=== PATIENT | female | born 1955 | race Caucasian/White ===

== ENCOUNTER → 2017-09-01 | Outpatient (CLI) | payer OTHER ==
[~2017-09-01] MED LIST: LOSARTAN POTASS25 MG PO; TAGAMET HB200 MG PO
--- NOTE | 2017-09-02 08:28 | Diagnostic Imaging Report ---
TECHNIQUE: Magnetic resonance imaging of the LEFT ANKLE was performed WITHOUT injected contrast. COMPARISON: None available. HISTORY: Pain, evaluate peroneal tendons. FINDINGS: Hindfoot varus. LIGAMENTS: Medial Complex: Deltoid intact. Lateral Complex: Tibiofibular ligaments intact. Attenuation of the anterior talofibular ligament and calcaneofibular ligament. TENDONS: Medial: Posterior tibial and flexor tendons intact. Lateral: Peroneal tendons intact. Anterior: Anterior tibial and extensor tendons intact. Achilles: Mild Achilles tendinosis. BONES: No focal or infiltrative bone marrow replacing abnormality. No acute fracture or osteonecrosis. JOINTS: Cartilage: No focal defect is identified involving the tibiotalar joint. Other: Fluid within the joints is within physiologic limits. SOFT TISSUES: Soft tissue edema about the ankle. Chronic thickening of the plantar fascia and enthesophyte formation. No edema. IMPRESSION: No acute osseous, ligamentous, or tendinous abnormality. Mild insertional Achilles tendinopathy. Chronic thickening of the plantar fascia without edema. Intact peroneal tendons. Signed by: Dr. Chase Singh M.D. on 09/02/2017 8:25 AM
== END ==
LOC: MRI 16:35
PROVIDERS: ATTEND Orthopaedic Surgery
DX: M25.572 Pain in left ankle and joints of left foot (principal); M77.52 Other enthesopathy of left foot and ankle; M76.72 Peroneal tendinitis, left leg

== ENCOUNTER → 2017-10-02 | Outpatient (CLI) | payer OTHER | LOC: MAMMO 14:48 | PROVIDERS: ATTEND Family Medicine | DX: Z12.31 Encounter for screening mammogram for malignant neoplasm of breast (principal) | CPT/HCPCS: 77067 ==

== ENCOUNTER → 2018-10-28 | Outpatient (CLI) | payer OTHER ==
--- NOTE | 2018-10-28 10:02 | Diagnostic Imaging Report ---
EXAM: US ABDOMEN COMPLETE DATE: 10/28/2018 9:07 AM INDICATION: Abdominal pain COMPARISON: None TECHNIQUE: Transverse and longitudinal louis scale and color doppler sonographic images of the upper abdomen were obtained. FINDINGS: There is no evidence of fluid or masses seen in the area of clinical concern in the right lower quadrant. LIVER 14.7 cm in the right midclavicular line. Normal echogenicity of the liver with normal contour, no masses. SPLEEN 10.1 cm in maximum diameter. Normal echogenicity, no masses. GALLBLADDER No gallbladder wall thickening, distension, stone, or pericholecystic fluid. Negative reported sonographic Witt's sign. The gallbladder wall measures 3 mm. BILE DUCTS No intra nor extra-hepatic biliary dilation. Common bile duct measures 3 mm. PANCREAS: Visualized portions are normal. RIGHT KIDNEY: 10.5 cm Echogenicity: Normal Collecting System: No hydronephrosis Stones: None Cyst/Mass: None LEFT KIDNEY: 9.9 cm Echogenicity: Normal Collecting System: No hydronephrosis Stones: None Cyst/Mass: None VESSELS: Aorta: Visualized portions are within normal size limits Inferior Vena Cava: Visualized portions are normal Main Portal Vein: 0.8 cm, normal size with hepatopetal flow. FREE FLUID: None IMPRESSION: Unremarkable abdominal ultrasound. Signed by: Gabriel Corley MD on 10/28/2018 9:58 AM
== END ==
LOC: US 08:54
PROVIDERS: ATTEND Family Medicine
DX: R10.11 Right upper quadrant pain (principal)
CPT/HCPCS: 76700

== ENCOUNTER → 2018-11-30 | Outpatient (CLI) | payer OTHER ==
--- NOTE | 2018-11-30 13:00 | Diagnostic Imaging Report ---
Hepatobiliary Scan with Gallbladder Ejection Fraction Clinical information: RUQ abdominal pain Report: Following intravenous administration of 6.2 millicuries of Tc-99m mebrofenin, dynamic images of the abdomen in the anterior projection were obtained through 60 minutes. Sincalide (CCK analog) 2.3 micrograms was administered intravenously over 30 minutes with additional imaging for determination of gallbladder ejection fraction. Perfusion to the liver is normal. Extraction of tracer from the blood pool by the liver parenchyma is normal. Tracer is seen promptly within the biliary tract. The gallbladder begins to fill by 33 minutes post-injection of tracer and fills adequately. Tracer is seen in the small bowel by 15 minutes. The gallbladder ejection fraction with administration of sincalide is 86% (normal greater than 40%). Impression: 1. Filling of the gallbladder excludes the diagnosis of acute cystic duct obstruction/acute cholecystitis. 2. Normal gallbladder ejection fraction of 86% does not support the clinical diagnosis of chronic cholecystitis/gallbladder dyskinesia. Signed by: Dr. Maria Antonia Croft M.D. on 11/30/2018 12:57 PM
== END ==
LOC: NM 07:54
PROVIDERS: ATTEND Family Medicine
DX: R10.11 Right upper quadrant pain (principal)
CPT/HCPCS: 78227; A9537

== ENCOUNTER → 2018-12-20 | Outpatient (CLI) | payer OTHER ==
--- NOTE | 2018-12-20 10:59 | Diagnostic Imaging Report ---
MRI SPINE LUMBAR WO HISTORY: Fall, low back pain COMPARISON: None. TECHNIQUE: Sagittal T1, sagittal T2, sagittal STIR, axial T2, coronal T2, and axial proton density weighted images of the lumbar spine were obtained without contrast. DISCUSSION: Number of non-rib bearing lumbar vertebral bodies: 5. Alignment: Normal lordosis. No scoliosis. Vertebrae: Small nodular T1 hyperintense lesion in the L3 vertebral body is a benign hemangioma. Otherwise, no fractures, infection or neoplasm. Conus medullaris: Normal, ends at L2. Cauda equina: The cauda equina is effaced at L3-L4. No masses or arachnoiditis. Posterior paraspinal muscles: Well preserved. No signal abnormalities. Soft tissues: No signal abnormalities. Mild multilevel disc degeneration is present. There are nonspecific mild inflammatory endplate changes at T11-T12. T12-L1: Patent canal and foramina. L1-L2: Patent canal and foramina. L2-L3: Mild canal stenosis due to disc bulge and ligamentum flavum thickening. No significant foraminal stenosis. L3-L4: Moderate to severe canal stenosis due to disc bulge and ligamentum flavum thickening. Mild bilateral foraminal stenoses due to disc bulge and facet arthrosis. Facet arthrosis is mild to moderate. L4-L5: Moderate canal stenosis due to disc bulge and ligamentum flavum thickening. Moderate right and mild left foraminal stenoses due to disc bulge and facet arthrosis. Facet arthrosis is advanced with right-sided facet effusion. L5-S1: Mild to moderate bilateral foraminal stenoses due to disc bulge and facet arthrosis. No significant canal stenosis. Facet arthrosis is advanced with left-sided facet effusion. IMPRESSION: 1. Mild multilevel disc degeneration. Nonspecific mild inflammatory endplate changes at T11-T12. 2. Moderate to severe L3-L4 and moderate L4-L5 degenerative canal stenoses. 3. Mild to moderate multilevel bilateral degenerative foraminal stenoses as described above. 4. Prominent bilateral lower lumbar facet arthrosis. Signed by: Dr. Sabino Rowley M.D. on 12/20/2018 10:56 AM
== END ==
LOC: MRI 07:40
PROVIDERS: ATTEND Family Medicine
DX: M51.36 Other intervertebral disc degeneration, lumbar region (principal)
CPT/HCPCS: 72148

== ENCOUNTER → 2018-12-22 | Day surgery (SDC) | payer OTHER ==
[~2018-12-22] MED LIST changes: +FENTANYL CITRATE/PF 100MCG/2 ML INJ ONE; +MIDAZOLAM HCL 2 MG/2 ML VIAL ONE; +PROPOFOL IV EMULSION 10 MG/ML 50 ML VIAL ONE
--- OUTSIDE RECORDS SUMMARY | 2018-12-22 06:47 | XMS REPORT ---
Author Author [facility] Address Unknown Phone Unavailable Care Team Providers Care Clinical Research Manager Name Role Phone MELINDA TRAVIS Unavailable Unavailable REGINO TRAVIS Unavailable Unavailable DANA TOSCANO Unavailable Unavailable Problems This patient has no known problems. Allergies, Adverse Reactions, Alerts This patient has no known allergies or adverse reactions. Medications This patient has no known medications. Results Test Description Test Time Test Comments Text Results Atomic Results Result Comments MRI SPINE LUMBAR WO 2018-12-20 10:43:00 [place] [address] Patient Name: DONYA ART MR #: [id number] : 1955 Age/Sex: 63/F Req #: [id number] Adm Physician: Ordered by: TRAVIS ANDREW DO Report #: [id number] Location: MRI Room/Bed: Procedure: [id number] MRI/MRI SPINE LUMBAR WO Exam Date: Exam Time: REPORT STATUS: Signed MRI SPINE LUMBAR WO HISTORY: Fall, low back pain COMPARISON: None. TECHNIQUE: Sagittal T1, sagittal T2, sagittal STIR, axial T2, coronal T2, and axial proton density weighted images of the lumbar spine were obtained without contrast. DISCUSSION: Number of non-rib bearing lumbar vertebral bodies: 5. Alignment: Normal lordosis. No scoliosis. Vertebrae: Small nodular T1 hyperintense lesion in the L3 vertebral body is a benign hemangioma. Otherwise, no fractures, infection or neoplasm. Conus medullaris: Normal, ends at L2. Cauda equina: The cauda equina is effaced at L3-L4. No masses or arachnoiditis. Posterior paraspinal muscles: Well preserved. No signal abnormalities. Soft tissues: No signal abnormalities. Mild multilevel disc degeneration is present. There are nonspecific mild inflammatory endplate changes at T11-T12. T12-L1: Patent canal and foramina. L1-L2: Patent canal and foramina. L2-L3: Mild canal stenosis due to disc bulge and ligamentum flavum thickening. No significant foraminal s tenosis. L3-L4: Moderate to severe canal stenosis due to disc bulge and ligamentum flavum thickening. Mild bilateral foraminal stenoses due to disc bulge and facet arthrosis. Facet arthrosis is mild to moderate. L4-L5: Moderate canal stenosis due to disc bulge and ligamentum flavum thickening. Moderate right and mild left foraminal stenoses due to disc bulge and facet arthrosis. Facet arthrosis is advanced with right-sided facet effusion. L5-S1: Mild to moderate bilateral foraminal stenoses due to disc bulge and facet arthrosis. No significant canal stenosis. Facet arthrosis is advanced with left-sided facet effusion. IMPRESSION: 1. Mild multilevel disc degeneration. Nonspecific mild inflammatory endplate changes at T11-T12. 2. Moderate to severe L3-L4 and moderate L4-L5 degenerative canal stenoses. 3. Mild to moderate multilevel bilateral degenerative foraminal stenoses as described above. 4. Prominent bilateral lower lumbar facet arthrosis. Signed by: Dr. Sabino Rowley M.D. on 12/20/2018 10:56 AM Dictated By: SABINO ROWLEY MD 1056 Transcribed By: MARVIN on 12/20/18 1056 COPY TO: MELINDA TRAVIS W PHARM 2018-11-30 12:55:00 [place] [address] Patient Name: DONYA ART MR #: [id number] : 1955 Age/Sex: 63/F Req #: [id number] [facility] Physician: Ordered by: TRAVIS ANDREW DO Report #: [id number] Location: [place] Room/Bed: Procedure: [id number] NM/HEPTOBILIARY W PHARM Exam Date: 11/30/18 Exam Time: 0850 REPORT STATUS: Signed Hepatobiliary Scan with Gallbladder Ejection Fraction Clinical information: RUQ abdominal pain Report: Following intravenous administration of 6.2 millicuries of Tc-99m mebrofenin, dynamic images of the abdomen in the anterior projection were obtained through 60 minutes. Sincalide (CCK analog) 2.3 micrograms was administered intravenously over 30 minutes with additional imaging for determination of gallbladder ejection fraction. Perfusion to the liver is normal. Extraction of tracer from the blood pool by the liver parenchyma is normal. Tracer is seen promptly within the biliary tract. The gallbladder begins to fill by 33 minutes post- injection of tracer and fills adequately. Tracer is seen in the small bowel by 15 minutes. The gallbladder ejection fraction with administration of sincalide is 86% (normal greater than 40%). Impression: 1. Filling of the gallbladder excludes the diagnosis of acute cystic duct obstruction/acute cholecystitis. 2. Normal gallbladder ejection fraction of 86% does not support the clinical diagnosis of chronic cholecystitis/gallbladder dyskinesia. Signed by: Dr. Lynnette Croft M.D. on 11/30/2018 12:57 PM Dictated By: LYNNETTE CROFT MD 1257 Transcribed By: MARVIN on 11/30/18 1257 COPY TO: MELINDA TRAVIS DO US ABDOMEN COMPLETE 2018-10-28 09:57:00 [place] [address] Patient Name: DONYA ART MR #: [id number] : 1955 Age/Sex: 62/F Req #: [id number] Adm Physician: Ordered by: TRAVIS ANDREW DO Report #: [id number] Location: Room/Bed: Procedure: US/US ABDOMEN COMPLETE Exam Date: 10/28/18 Exam Time: 931 REPORT STATUS: Signed EXAM: US ABDOMEN COMPLETE DATE: 10/28/2018 9:07 AM INDICATION: Abdominal pain COMPARISON: None TECHNIQUE: Transverse and longitudinal louis scale and color doppler sonographic images of the upper abdomen were obtained. FINDINGS: There is no evidence of fluid or masses seen in the area of clinical concern in the right lower quadrant. LIVER 14.7 cm in the right midclavicular line. Normal echogenicity of the liver with normal contour, no masses. SPLEEN 10.1 cm in maximum diameter. Normal echogenicity, no masses. GALLBLADDER No gallbladder wall thickening, distension, stone, or pericholecystic fluid. Negative reported sonographic Witt's sign. The gallbladder wall measures 3 mm. BILE DUCTS No intra nor extra-hepatic biliary dilation. Common bile duct measures 3 mm. PANCREAS: Visualized portions are normal. RIGHT KIDNEY: 10.5 cm Echogenicity: Normal Collecting System: No hydronephrosis Stones: None Cyst/Mass: None LEFT KIDNEY: 9.9 cm Echogenicity: Normal Collecting System: No hydronephrosis Stones: None Cyst/Mass: None VESSELS: Aorta: Visualized portions are within normal size limits Inferior Vena Cava: Visualized portions are normal Main Portal Vein: 0.8 cm, normal size with hepatopetal flow. FREE FLUID: None IMPRESSION: Unremarkable abdominal ultrasound. Signed by: Courtney Duggan MD on 10/28/2018 9:58 AM Dictated By: COURTNEY DUGGAN MD 0958 Transcribed By: MARVIN on 10/28/18 0958 COPY TO: MELINDA TRAVIS DO MAMMOGRAPHY DIGITAL SCR BILAT 2017-10-02 15:25:00 [place] [address] Patient Name: DONYA ART MR #: [id number] : 1955 Age/Sex: 61/F Req #: [id number] Adm Physician: Ordered by: REGINO TRAVIS DO Report #: [id number] Location: MAMMO Room/Bed: Procedure: [id number] MG/MAMMOGRAPHY DIGITAL SCR BILAT Exam Date: 10/02/17 Exam Time: 1500 REPORT STATUS: Signed #[id number] - [id number] #BILATERAL DIGITAL SCREENING MAMMOGRAM WITH CAD: 10/02/2017 CLINICAL: Routine screening. Comparison is made to exams dated: 12/09/2012 mammogram and 05/27/2010 mammogram - [facility]. The tissue of both breasts is heterogeneously dense. This may lower the sensitivity of mammography. Current study was also evaluated with a Computer Aided Detection (CAD) system. There are benign calcifications in both breasts. There also are benign vascular calcifications in both breasts. No significant masses, calcifications, or other findings are seen in either breast. There has been no significant interval change. IMPRESSION: BENIGN There is no mammographic evidence of malignancy. A 1 year screening mammogram is recommended. The patient will be notified by letter of the results. Armando Sue Jr., D.O. cw/:10/08/2017 14:26:12 [place] [employer]: Lynnette VENTURA(R)(Mariza), [facility] l jorgito sent: Compared to Prior B9 Mammogram BI-RADS: 2 Benign Dictated By: ARMANDO SUE DO 25 Transcribed By: THIAGO on 10/08/171425 COPY TO: REGINO TRAVIS DO MRI ANKLE LEFT WO 2017-09-02 08:21:00 [place] [address] Patient Name: DONYA ART MR #: [id number] : 1955 Age/Sex: 61/F Req #: [id number] Adm Physician: Ordered by: DANA TOSCANO DO Report #: [id number] Location: MRI Room/Bed: Procedure: [id number] MRI/MRI ANKLE LEFT WO Exam Date: Exam Time: REPORT STATUS: Signed TECHNIQUE: Magnetic resonance imaging of the LEFT ANKLE was performed WITHOUT injected contrast. COMPARISON: None available. HISTORY: Pain, evaluate peroneal tendons. FINDINGS: Hindfoot varus. LIGAMENTS: Medial Complex: Deltoid intact. Lateral Complex: Tibiofibular ligaments intact. Attenuation of the anterior talofibular ligament and calcaneofibular ligament. TENDONS: Medial: Posterior tibial and flexor tendons intact. Lateral: Peroneal tendons intact. Anterior: Anterior tibial and extensor tendons intact. Achilles: Mild Achilles tendinosis. BONES: No focal or infiltrative bone marrow replacing abnormality. No acute fracture or osteonecrosis. JOINTS: Cartilage: No focal defect is identified involving the tibiotalar joint. Other: Fluid within the joints is within physiologic limits. SOFT TISSUES: Soft tissue edema about the ankle. Chronic thickening of the plantar fascia and enthesophyte formation. No edema. IMPRESSION: No acute osseous, ligamentous, or tendinous abnormality. Mild insertional Achilles tendinopathy. Chronic thickening of the plantar fascia without edema. Intact peroneal tendons. Signed by: Dr. Melinda Jett M.D. on 09/02/2017 8:25 AM Dictated By: MELINDA JETT MD 4 Transcribed By: MARVIN on 09/02/17824 COPY TO: DANA TOSCANO DO
--- NOTE | 2018-12-22 07:10 | NUR ---
SPIRITUAL CARE - Pre-Surgery Assessment: Pt in bed. Pt's at bedside. Pt reported supportive attention from family and friends. Intervention: I provided pastoral presence, hospitality, and sympathetic listening. I acquainted pt with availability of frame carver spindle while hospitalized. Outcome: Pt expressed appreciation for visit. No need for follow up indicated at this time. LEROY Prietolain Spiritual Care Department O: [phone] Pager: [phone] ([phone] + number calling from)
[2018-12-22 10:05] VITALS: BP 127/90
--- NOTE | 2018-12-22 15:07 | Operative Report ---
DATE OF PROCEDURE: 12/22/2018 SURGEON: Christopher Crowley MD PROCEDURE: EGD with biopsies. INDICATIONS FOR EGD: Upper abdominal pain, bloating. MEDICATIONS: The patient was done under MAC, please see anesthesiologist's note. PROCEDURE IN DETAIL: With the patient in left lateral decubitus position, a flexible fiberoptic Olympus gastroscope was introduced into the esophagus under direct visualization without any difficulty. Two minute nodules were cold biopsied in the cervical esophagus. There were some longitudinal furrows and some concentric rings, compatible or suspicious for eosinophilic esophagitis and biopsies were obtained. A minute tongue of velvety red mucosa was noted to extend proximally from the GE junction that was biopsied to rule out Grover. The scope was then advanced with ease into the stomach traversing a small sliding hiatal hernia. Mucosa overlying the antrum and the body revealed some patchy erythema and low-grade edema, and biopsies were obtained and sent to stain for H. pylori. A minute ulcer was noted in the peripyloric area that was biopsied. The pylorus was of normal contour and shape, it was intubated with ease and the scope was advanced all the way to the second portion of the duodenum. Biopsies were obtained from the second portion and duodenal bulb to rule out sprue. The scope was then withdrawn back into the stomach and retroflexed, and mucosa overlying the fundus and the cardia appeared to be within normal limits. The scope was then straightened out, it was subsequently withdrawn, and the patient tolerated the procedure well. IMPRESSION: 1. Minute nodules x2, cervical esophagus, cold biopsied. 2. Rule out eosinophilic esophagitis. 3. Rule out Grover esophagus. 4. Small sliding hiatal hernia. 5. Gastritis. 6. Gastric ulcer, minute, peripyloric area, biopsied. 7. Rule out sprue. PLAN: Follow up histology. Initiate Protonix 40 mg 1 p.o. q.a.m. before meals Christopher Crowley MD [facility] [place]/MODL /[id number] cc: Delmer Tubbs DO
== END | disposition home or self-care (01) ==
LOC: OR 06:20
PROVIDERS: ATTEND Internal Medicine Gastroenterology
DX: R12 Heartburn (principal); R10.10 Upper abdominal pain, unspecified; R14.0 Abdominal distension (gaseous); K59.00 Constipation, unspecified; R11.0 Nausea; K21.9 Gastro-esophageal reflux disease without esophagitis; I10 Essential (primary) hypertension; Z80.9 Family history of malignant neoplasm, unspecified; Z83.3 Family history of diabetes mellitus; Z82.49 Family history of ischemic heart disease and other diseases of the circulatory system; K29.70 Gastritis, unspecified, without bleeding; K44.9 Diaphragmatic hernia without obstruction or gangrene; K25.9 Gastric ulcer, unspecified as acute or chronic, without hemorrhage or perforation; Z01.810 Encounter for preprocedural cardiovascular examination; K20.9 Esophagitis, unspecified; D13.0 Benign neoplasm of esophagus
CPT/HCPCS: 43239; 93005; J2250; J2704; J3010

== ENCOUNTER → 2019-09-01 | Outpatient (CLI) | payer OTHER ==
[~2019-09-01] MED LIST changes: -FENTANYL CITRATE/PF 100MCG/2 ML INJ ONE; -MIDAZOLAM HCL 2 MG/2 ML VIAL ONE; -PROPOFOL IV EMULSION 10 MG/ML 50 ML VIAL ONE
== END ==
LOC: MAMMO 13:34
PROVIDERS: ATTEND Family Medicine
DX: Z12.31 Encounter for screening mammogram for malignant neoplasm of breast (principal)
CPT/HCPCS: 77067